=== PATIENT | female | born 1945 | race Caucasian/White ===

== ENCOUNTER → 2016-11-09 | Outpatient (CLI) | payer OTHER, BC ==
[~2016-11-09] MED LIST: AMLO5TAB4 PO; ASPI-113 PO; CLB/200 PO; DYZ; LISI-725 PO; TRAM-10 PO; [UNRECOGNIZED DRUG - REMARK]
[2016-11-09 14:30] LABS: BASO ABS # 0.06 K/uL (0-0.2); COMPLETE YES; EOS % 2.4 %; HEMATOCRIT 42.2 % (37-47); IG% 0.2 %; LYMPH % 32.3 %; LYMPH ABS # 2.03 K/uL (1.2-3.4); MEAN CELL VOLUME 88.7 fL (80-100); MEAN CORPUSCULAR HEMOGLOBIN 29.8 pg (25-34); MEAN CORPUSCULAR HGB CONC 33.6 g/dl (32-36); MEAN PLATELET VOLUME 10.9 fL (7.4-10.4); MONO % 6.7 %; NEUT % 57.4 %; PLATELET COUNT 261 K/uL (130-400); RED BLOOD COUNT 4.76 M/uL (4.2-5.4); WHITE BLOOD COUNT 6.29 K/uL (4.8-10.8)
[2016-11-09 14:52] LABS: ESTIMATED AVERAGE GLUCOSE 126 mg/dl; HA1C FLAG Normal (Normal)
[2016-11-09 14:54] LABS: THYROXINE (T4) 8.6 mcg/dl (4.5-10.9)
[2016-11-09 16:01] LABS: ALT/SGPT 44 U/L (12-78); AST/SGOT 25 U/L (15-37); BLOOD UREA NITROGEN 15 mg/dl (7-18); BUN/CREATININE RATIO 21.2 (10-20); CALCIUM 9.1 mg/dl (8.5-10.1); CARBON DIOXIDE 24 mmol/L (21-32); CHLORIDE 104 mmol/L (98-107); CHOLESTEROL 175 mg/dl (0-200); CREATININE 0.72 mg/dl (0.60-1.20); GLUCOSE 97 mg/dl (70-99); POTASSIUM 3.6 mmol/L (3.5-5.1); SODIUM 138 mmol/L (136-145); TRIGLYCERIDES 197 mg/dl (0-150); VERY LOW DENSITY LIPOPROT CALC 39 mg/dl
[2016-11-09 16:12] LABS: ALB/GLOB RATIO 1.1 (0.9-2); ALKALINE PHOSPHATASE 136 U/L (45-117); CHOLESTEROL/HDL RATIO 4.4; HDL CHOLESTEROL 40 mg/dl
== END | disposition home or self-care (01) ==
LOC: C.LABSPEC 14:21
PROVIDERS: ATTEND Internal Medicine
DX: I10 Essential (primary) hypertension (principal); E78.5 Hyperlipidemia, unspecified; R73.9 Hyperglycemia, unspecified; E04.2 Nontoxic multinodular goiter

== ENCOUNTER → 2017-04-15 | Outpatient (CLI) | payer OTHER, BC ==
[2017-04-15 18:07] LABS: T3 TOTAL 1.16 ng/ml (0.60-1.81); THYROXINE (T4) 8.2 mcg/dl (4.5-10.9)
--- NOTE | 2017-04-26 14:31 | CODING QUERY NO DIAGNOSIS ---
TREATMENT RENDERED WITHOUT A DIAGNOSIS : 1945 To promote full compliance with coding requirements relating to patient care, physician participation is requested in all cases of auditing coder uncertainty. Please assist us with providing a diagnosis/symptom for the test(s) below: A diagnosis/symptom was not documented on your Order. A valid diagnosis/symptom is required to bill all insurances. Please remember that we are unable to code a diagnosis of rule out, probable, possible, questionable, or suspected. Tests that require a diagnosis: DOS: 04/15/17 * T3 TOTAL DIAGNOSIS: * THYROXINE (T4) DIAGNOSIS: * THYROID STIMULATING DIAGNOSIS: Provider Signature: Date: Thank you Cora Reyes Health Information Management Once completed, please kindly fax back to [phone] For questions please call [phone]
== END | disposition home or self-care (01) ==
LOC: C.LABSPEC 17:30
PROVIDERS: ATTEND Internal Medicine
DX: E04.2 Nontoxic multinodular goiter (principal)

== ENCOUNTER → 2017-04-18 | Outpatient (CLI) | payer OTHER, BC ==
--- NOTE | 2017-04-18 11:04 | DIAGNOSTIC IMAGING REPORT ---
ULTRASOUND OF THE THYROID GLAND CLINICAL HISTORY: Multinodular thyroid. COMPARISON STUDY: Thyroid ultrasound dated 06/03/2014. TECHNIQUE: Real-time, grayscale, and color flow sonography of the thyroid gland is performed utilizing a high-frequency linear transducer. Images are reviewed in the transverse and longitudinal planes. FINDINGS: Right lobe: The right lobe of the thyroid gland is mildly enlarged and homogeneous in echotexture, measuring 6.3 x 3.9 x 3.6 cm. There is a large and minimally complex cyst again seen in the lower pole. This measures 4.2 x 3.7 x 3.7 cm (previously 2.7 x 2.8 x 2.7 cm). Additional small colloid cysts are noted in the right lobe. The more solid appearing nodule in the upper pole identified previously is no longer identified. Left lobe: The left lobe of the thyroid gland is normal in size and homogeneous in echotexture, measuring 4.4 x 1.5 x 1.5 cm. There are numerous small colloid cyst identified in the left lobe. The largest is in the midpole and measures 0.9 x 0.6 x 0.7 cm (producing measured 0.8 x 0.5 x 0.7 cm). Isthmus: The thyroid isthmus is mildly thickened measuring 0.5 cm in AP diameter. IMPRESSION: 1. A large and minimally complex cystic nodule in the lower pole of the right thyroid lobe has modestly increased in size from 2013. This remains low suspicion. Continued sonographic follow-up is recommended. 2. The more solid appearing nodule in the right upper pole seen previously is no longer identified. 3. Numerous small colloid cysts are present in both thyroid lobes. Electronically signed by: Vincenzo Lyons M.D. 04/18/2017 11:03 AM Dictated Date/Time: 04/18/2017 10:59 AM
== END | disposition home or self-care (01) ==
LOC: C.ULTR 10:28
PROVIDERS: ATTEND Internal Medicine
DX: E04.2 Nontoxic multinodular goiter (principal)

== ENCOUNTER → 2017-04-25 | Outpatient (CLI) | payer OTHER, BC ==
--- NOTE | 2017-04-25 11:03 | DIAGNOSTIC IMAGING REPORT ---
ULTRASOUND-GUIDED FINE-NEEDLE ASPIRATION OF A RIGHT THYROID NODULE HISTORY: Right thyroid nodule. ENLARGED THYROID COMPARISON: Thyroid ultrasound 04/18/2017. PROCEDURE: Written informed consent was obtained. The neck was prepped and draped in the usual sterile fashion. 1% lidocaine was used for local anesthesia. A total of 1 pass using a 25-gauge needle were made through the dominant right thyroid nodule /cyst under ultrasound guidance. This was followed with near complete drainage of the primarily cystic nodule with a 22-gauge needle. A total of 10 cc of serosanguineous fluid was removed and given to the washer off. The patient tolerated the procedure well. There were no immediate complications. IMPRESSION: Successful ultrasound-guided fine-needle aspiration of a right thyroid nodule/cyst. Electronically signed by: Javier Montalvo M.D. 04/25/2017 11:01 AM Dictated Date/Time: 04/25/2017 11:00 AM
== END | disposition home or self-care (01) ==
LOC: C.ULTR 09:24
PROVIDERS: ATTEND Internal Medicine
DX: E04.9 Nontoxic goiter, unspecified (principal)

== ENCOUNTER → 2017-05-02 | Outpatient (CLI) | payer OTHER, BC ==
--- NOTE | 2017-05-03 07:26 | MAMMOGRAPHY REPORT ---
BILATERAL DIGITAL SCREENING MAMMOGRAM TOMOSYNTHESIS WITH CAD: 05/02/2017 CLINICAL HISTORY: Routine screening. Patient has no complaints. TECHNIQUE: Bilateral breast tomosynthesis in addition to standard 2D mammography was performed. Curre nt study was also evaluated with a Computer Aided Detection (CAD) system. COMPARISON: Comparison is made to exams dated: 04/29/2016 mammogram, 04/28/2015 mammogram, 4 mammogram, 04/24/2013 mammogram, 04/21/2012 mammogram, and 04/19/2011 mammogram - [facility]. BREAST COMPOSITION: There are scattered areas of fibroglandular density in both breasts. FINDINGS: There is a possible area of architectural distortion in the lateral, middle one third of t he right breast, identified on the CC tomosynthesis images (slice 29/72), for which additional spot c ompression tomosynthesis views and possible ultrasound are recommended. No other suspicious mass, architectural distortion or cluster of microcalcifications is seen bilatera lly. IMPRESSION: ACR BI-RADS CATEGORY 0: INCOMPLETE EVALUATION: NEED ADDITIONAL IMAGING EVALUATION The possible area of architectural distortion in the lateral right breast needs additional imaging ev aluation. The patient will be called to schedule an appointment. Approximately 10% of breast cancers are not detected with mammography. A negative mammographic report should not delay biopsy if a clinically suggestive mass is present. Tonja Saldivar M.D. ay/:05/02/2017 20:40:56 Nitrator Operator: Martha CARPIO)(Angelika), [facility] letter sent: Addl Imaging 0 BI-RADS Code: ACR BI-RADS Category 0: Incomplete Evaluation: Need Additional Imaging Evaluation
== END | disposition home or self-care (01) ==
LOC: C.MAMM 10:39
PROVIDERS: ATTEND Internal Medicine
DX: Z12.31 Encounter for screening mammogram for malignant neoplasm of breast (principal); N64.89 Other specified disorders of breast

== ENCOUNTER → 2017-05-16 | Outpatient (CLI) | payer OTHER, BC ==
--- NOTE | 2017-05-16 13:24 | Discharge Instructions ---
Discharge Instructions Procedure Procedure Date: May 16, 2017. Reason for visit: Right Distortion. Discharge Discharge Date: May 16, 2017. Discharge Diagnosis: post right breast stereotactic/tomosynthesis guided biopsy Instructions Activity Recommendations: Additional Limitations (see below) Return to School/Work: no limitations Recommended Home Diet: No Limitations Provider Instructions: ACTIVITY RECOMMENDATIONS: * No lifting, pushing, pulling or exercising the affected side for three days. RETURN TO SCHOOL/WORK: * You may return to work/school after the procedure, but do not perform any strenuous activities for 24 to 48 hours. MEDICATIONS: * Tylenol (two 325 mg) every four to six hours if needed for mild pain (if not allergic to Tylenol). DIET: * Resume previous diet. SPECIAL CARE INSTRUCTIONS: * Keep biopsy site dry for 24 hours. May shower after 24 hours, but do not soak (bathe) incision. * May remove Tegaderm (plastic patch) tomorrow AFTER showering. * Leave the steri-strips on for one week. Allow the steri-strips to fall off by themselves. If not off after one week, you may remove them. You may place a Bandaid crosswise over the strips, if desired. * Apply ice 10 minutes on and 10 minutes off as needed. * Wear a bra at bedtime to sleep more comfortably for 2-3 days. * Your referring physician should have the results after approximately 5 to 7 business days. * Call for unusual bleeding, fever, drainage, etc or if you have any questions call [phone] during normal business hours or after hours call Dr Saldivar, . FOLLOW UP VISIT: Follow-up with Referring Physician as scheduled. Allergies Coded Allergies: No Known Drug Allergy (Verified Allergy, Unknown, ., 03/10/12) Bill Morelos Recommendations: Call your doctor if: * Temperature above 101 degrees * Pain not relieved by pain medicine ordered * There is increased drainage or redness from any incision * You have any unanswered questions or concerns. Your Doctors Instructions noted above were prepared by provider Tonja Saldivar. Patient Signature Section: Patient Instructions Signature Page Miracle Cantu Patient (or Guardian) Signature/Date: I have read and understand the instructions given to me by my caregivers. Caregiver/RN/Doctor Signature/Date: The above-named patient and/or guardian has received patient instructions on this date. + Original Patient Signature Page (only) stays with chart. Please make copy for patient.
--- NOTE | 2017-05-16 15:01 | MAMMOGRAPHY REPORT ---
STEREOTACTIC GUIDED BIOPSY RIGHT BREAST: 05/16/2017 CLINICAL HISTORY: 71-year-old woman presents for stereotactic tomosynthesis guided biopsy of a small focal area of architectural distortion in the upper outer middle one third of the right breast. COMPARISON: Comparison is made to exams dated: 05/06/2017 ultrasound, 05/06/2017 mammogram, 05/02/2017 mammogram, 04/29/2016 mammogram, 04/28/2015 mammogram, and 04/25/2014 mammogram - [facility]. PATIENT CONSENT: After explaining the risks, benefits and alternatives of the procedure to the patien t, informed consent was obtained both verbally and in writing. Specific risks include: Bleeding, inf ection, puncture of adjacent structure, pain, nontarget biopsy, sampling error, metal allergy and med ication reaction. PROCEDURE DESCRIPTION: A time-out was performed and the right breast was confirmed as the site of bio psy. The patient was placed prone on the stereotactic biopsy table and the breast was placed in CC fr om above compression. A fleet maintenance foreman tomosynthesis view was obtained which redemonstrated the focal area of architectural distortion in question. It is amenable to stereotactic guided biopsy. The skin was pre pped with Betadine. 1% Lidocaine with and without epinipherine was administered as local anesthesia. A small skin incision was made. Through the incision, the needle was inserted to the depth determine d by the computer. An additional tomosynthesis view was obtained to assess alignment of the tip of a biopsy needle with the area of distortion, which confirms that this is in alignment. Then, 10 sampl es were obtained using a Sentence Labiva 9-gauge vacuum-assisted biopsy device. A dumbbell-shaped metall ic biopsy marker clip was placed at the site of the biopsy. There was no immediate complication. Hem ostasis was achieved after several minutes of manual compression. The samples were sent to pathology in in appropriately labeled containers. Postprocedure CC and ML tomosynthesis views of the right breast were obtained. There is a 1 cm abimbola paulie and biopsy marker clip in the upper outer middle one third of the right breast, correlating with the focal area of distortion seen on the tomosynthesis images. IMPRESSION: STEREOTACTIC GUIDED BIOPSY Status post right breast stereotactic tomosynthesis guided biopsy of a small focal area of architectu ral distortion in the upper outer middle one third of the breast, with biopsy marker placed at the si te. The patient will receive notification of the biopsy results from her referring physician. Tonja Saldivar M.D. ay/:05/16/2017 13:51:11 Attending Technologist: Radha CARPIO)(Angelika), [facility] Music Therapy Specialist: Pippa Philip, [facility]
--- NOTE | 2017-05-16 15:03 | MAMMOGRAPHY REPORT ---
UNILATERAL RIGHT DIGITAL DIAGNOSTIC MAMMOGRAM TOMOSYNTHESIS: 05/16/2017 CLINICAL HISTORY: Status post stereotactic tomosynthesis guided biopsy of a small focal area of archi tectural distortion in the upper outer quadrant of the right breast. Please refer to the report from right breast stereotactic guided biopsy performed at the same time fo r full detail. IMPRESSION: POST PROCEDURE IMAGING FOR MARKER PLACEMENT Please refer to the report from right breast stereotactic guided biopsy performed at the same time fo r full detail. Approximately 10% of breast cancers are not detected with mammography. A negative mammographic report should not delay biopsy if a clinically suggestive mass is present. Tonja Saldivar M.D. ay/:05/16/2017 13:25:11 Attending Technologist: Radha LIRIANO(R)(M), [facility] Medical Records Clerk: Pippa Philip, [facility] BI-RADS Code: Post Procedure Imaging For Marker Placement
== END | disposition home or self-care (01) ==
LOC: C.MAMM 12:27
PROVIDERS: ATTEND Internal Medicine
DX: R92.8 Other abnormal and inconclusive findings on diagnostic imaging of breast (principal); L90.5 Scar conditions and fibrosis of skin

== ENCOUNTER → 2017-07-18 | Outpatient (CLI) | payer OTHER, BC ==
[2017-07-18 12:16] LABS: BASO % 0.7 %; BASO ABS # 0.04 K/uL (0-0.2); EOS % 1.4 %; EOS ABS # 0.08 K/uL (0-0.5); HEMATOCRIT 42.6 % (37-47); HEMOGLOBIN 14.1 g/dL (12.0-16.0); IG# 0.01 K/uL (0.00-0.02); LYMPH % 28.2 %; LYMPH ABS # 1.56 K/uL (1.2-3.4); MEAN CELL VOLUME 89.9 fL (80-100); MEAN CORPUSCULAR HEMOGLOBIN 29.7 pg (25-34); MEAN CORPUSCULAR HGB CONC 33.1 g/dl (32-36); MEAN PLATELET VOLUME 10.5 fL (7.4-10.4); MONO % 6.9 %; MONO ABS # 0.38 K/uL (0.11-0.59); NEUT % 62.6 %; NEUT ABS # 3.47 K/uL (1.4-6.5); PLATELET COUNT 248 K/uL (130-400); RED CELL DISTRIBUTION WIDTH CV 13.9 % (11.5-14.5); RED CELL DISTRIBUTION WIDTH SD 45.8 fL (36.4-46.3); WHITE BLOOD COUNT 5.54 K/uL (4.8-10.8)
[2017-07-18 12:48] LABS: BLOOD UREA NITROGEN 19 mg/dl (7-18); CALCIUM 9.4 mg/dl (8.5-10.1); CARBON DIOXIDE 30 mmol/L (21-32); CREATININE 0.87 mg/dl (0.60-1.20); GLUCOSE 107 mg/dl (70-99); POTASSIUM 3.7 mmol/L (3.5-5.1); SODIUM 137 mmol/L (136-145)
== END | disposition home or self-care (01) ==
LOC: C.LAB 11:41
PROVIDERS: ATTEND Surgery
DX: N64.89 Other specified disorders of breast (principal); Z01.812 Encounter for preprocedural laboratory examination

== ENCOUNTER → 2017-11-09 | Outpatient (CLI) | payer OTHER, BC ==
[~2017-11-09] MED LIST changes: +AMLO-110 PO; -AMLO5TAB4 PO; -ASPI-113 PO; +B-COTAB18 PO; +BIOF500T PO; +CALC600T9 PO; -CLB/200 PO; +DIPH25TA2 PO; -DYZ; +HYDR-5688 PO; +MINO50TA PO; +OMEG10007 PO; -TRAM-10 PO; +TRIA37.5 PO; +VNTHFA/IN INH; -[UNRECOGNIZED DRUG - REMARK]
[2017-11-09 18:42] LABS: BASO % 0.8 %; BASO ABS # 0.05 K/uL (0-0.2); EOS % 3.3 %; HEMATOCRIT 40.8 % (37-47); HEMOGLOBIN 13.9 g/dL (12.0-16.0); IG# 0.01 K/uL (0.00-0.02); LYMPH % 33.2 %; LYMPH ABS # 2.04 K/uL (1.2-3.4); MEAN CELL VOLUME 88.3 fL (80-100); MEAN CORPUSCULAR HEMOGLOBIN 30.1 pg (25-34); MEAN CORPUSCULAR HGB CONC 34.1 g/dl (32-36); MEAN PLATELET VOLUME 10.7 fL (7.4-10.4); MONO % 9.6 %; MONO ABS # 0.59 K/uL (0.11-0.59); NEUT % 52.9 %; NEUT ABS # 3.26 K/uL (1.4-6.5); PLATELET COUNT 216 K/uL (130-400); RED CELL DISTRIBUTION WIDTH CV 14.1 % (11.5-14.5); RED CELL DISTRIBUTION WIDTH SD 45.9 fL (36.4-46.3); WHITE BLOOD COUNT 6.15 K/uL (4.8-10.8)
[2017-11-09 18:55] LABS: ALBUMIN 3.9 gm/dl (3.4-5.0); ALT/SGPT 50 U/L (12-78); AST/SGOT 31 U/L (15-37); BLOOD UREA NITROGEN 9 mg/dl (7-18); CARBON DIOXIDE 25 mmol/L (21-32); GLUCOSE 130 mg/dl (70-99); POTASSIUM 3.1 mmol/L (3.5-5.1); SODIUM 137 mmol/L (136-145)
[2017-11-09 19:06] LABS: ALKALINE PHOSPHATASE 146 U/L (45-117); CHOLESTEROL 166 mg/dl (0-200); LDL CHOLESTEROL (DIRECT) 103 mg/dl; TOTAL PROTEIN 8.2 gm/dl (6.4-8.2)
[2017-11-10 06:49] LABS: HEMOGLOBIN A1C 6.1 % (4.5-5.6)
== END | disposition home or self-care (01) ==
LOC: C.LABSPEC 17:17
PROVIDERS: ATTEND Internal Medicine
DX: I10 Essential (primary) hypertension (principal); E78.5 Hyperlipidemia, unspecified; R73.9 Hyperglycemia, unspecified; J40 Bronchitis, not specified as acute or chronic; E04.2 Nontoxic multinodular goiter

== ENCOUNTER 2022-09-24 08:41 | Observation (INO) ==
--- NOTE | 2022-08-20 16:13 | PAT Medication Instructions ---
Medication Instructions Date of Service August 20, 2022 Home Medications Vitalizer Gold 1 dose PO QAM amlodipine 5 mg tablet 5 mg PO QAM atorvastatin 20 mg tablet 20 mg PO QAM celecoxib 200 mg capsule (Celebrex) 200 mg PO BID PRN lisinopril 10 mg tablet 20 mg PO BID minocycline 50 mg tablet 50 mg PO QAM potassium chloride 10 mEq tablet,extended release (Klor-Con) 10 meq PO QAM triamterene 37.5 mg-hydrochlorothiazide 25 mg tablet 1 tab PO QAM ASK your surgeon for instructions celecoxib 200 mg capsule (Celebrex) 200 mg PO BID PRN STOP taking 2 weeks before surgery (or as soon as possible if surgery is within 2 weeks) Vitalizer Gold 1 dose PO QAM DO NOT take the morning of surgery lisinopril 10 mg tablet 20 mg PO BID potassium chloride 10 mEq tablet,extended release (Klor-Con) 10 meq PO QAM triamterene 37.5 mg-hydrochlorothiazide 25 mg tablet 1 tab PO QAM Take morning of surgery With a small sip of water, OTHERWISE NOTHING TO EAT OR DRINK AFTER MIDNIGHT: amlodipine 5 mg tablet 5 mg PO QAM atorvastatin 20 mg tablet 20 mg PO QAM minocycline 50 mg tablet 50 mg PO QAM Take evening before surgery lisinopril 10 mg tablet 20 mg PO BID Other Notes If you have any questions please call us at [phone] or [phone] or [phone] or [phone]
--- NOTE | 2022-08-25 10:09 | Anesthesiology Consultation ---
Date of Service August 25, 2022 Assessment & Plan (1) Encounter for pre-operative examination: Chart Review Chart Review: Acceptable Risk for Surgery (pending 09/03/22 ECHO ) and Patient seen in Pre Admission Testing - Awaiting ECHO scheduled 09/03/22 at [facility] - Due to age and palpitations - patient is not an ideal Same Day Joint candidate Per PAT appt on 08/25/22, patient denies any recent travel or large group activities. Pt is vaccinated for Covid. Will leave to surgeon's discretion if preop Covid testing needed. Educated on importance of using Covid precautions one week prior to surgery Teaching & Discussion Pre-Anesthesia Teaching/Discussion Notes: Instructed NPO after midnight before surgery,except medications with 15 cc of water. Medication instructions provided according to the PAT guidelines. History Surgery Operation Date: 09/24/22 10:30 Proposed Procedures p Right Total Knee Arthroplasty - Santhosh Tate, Height/Weight Height: 5 ft 7 in Weight: 105.9 kg Allergies Allergy/AdvReac Type Severity Reaction Status Date / Time acetaminophen [From Vicodin] AdvReac Intermediate difficulty Verified 08/25/22 08:55 sleeping hydrocodone [From Vicodin] AdvReac Intermediate difficulty Verified 08/25/22 08:55 sleeping Medications Home Medications Medication Instructions Recorded Confirmed Last Taken Vitalizer Gold 1 dose PO QAM 08/19/22 08/25/22 Unknown amlodipine 5 mg tablet 5 mg PO QAM 08/19/22 08/25/22 Unknown atorvastatin 20 mg tablet 20 mg PO QAM 08/19/22 08/25/22 Unknown celecoxib 200 mg capsule (Celebrex) 200 mg PO BID PRN Pain 08/19/22 08/25/22 Unknown lisinopril 10 mg tablet 20 mg PO BID 08/19/22 08/25/22 Unknown minocycline 50 mg tablet 50 mg PO QAM 08/19/22 08/25/22 Unknown potassium chloride 10 mEq 10 meq PO QAM 08/19/22 08/25/22 Unknown tablet,extended release (Klor-Con) triamterene 37.5 1 tab PO QAM 08/19/22 08/25/22 Unknown mg-hydrochlorothiazide 25 mg tablet Past Medical History Medical History 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 Rule out arrhythmia and structural heart disease. EKG obtained in office today shows sinus rhythm with PACs. We will get 14 day Zio monitor placed today. Echocardiogram to rule out structural heart disease. If these are reassuring would stop workup at that time. Do not suspect blood pressure/orthostasis is contributing." Echo scheduled 09/03/22 [facility]. Exercise / Class Metabolic Activity III < 4 Walking/Shop/Light housework (no chest pain or SOB with flat surface ambulation ) Past Surgical History Surgical History History of bilateral tubal ligation History of bunionectomy left History of carpal tunnel release R/L History of cholecystectomy History of colonoscopy with polypectomy History of hysterectomy History of tonsillectomy History of tooth extraction History of total hip arthroplasty R/L Hx of breast biopsy x several S/P thyroid biopsy benign Past Anesthesia History No Hx of Anesthesia Complications and No Family Hx of Anesthesia Complications History of PONV No Hx of PONV and No Hx of Motion Sickness Social History Smoking Status: Former smoker Do You Dip or Chew Tobacco: No Smoking End Date: 2012 Hx Alcohol Use: Yes Alcohol type: beer and wine alcohol intake frequency: a few times a week Hx Substance Use: No substance use type: does not use Review of Systems Palpitations- following with PCP- improved from previous recently per patient Patient denies chest pain, shortness of breath, dyspnea on exertion, reflux, cough, wheezing. No hx of seizures, stroke, [place], apnea/snoring. No hx of blood clots or blood transfusions Physical Exam Vital Signs VITALS BP 150/78 (manually) P 85 TEMP 98.1 SP02 96% RESP 16 Constitutional no acute distress ENMT Mouth: no TMJ clicking Thyromental Distance: > or= 3.5 Finger Breadths (4.0) Mallampati Class: III Full dentures on top and bottom Neck + limited neck extension (minimal) Respiratory normal respiratory effort; no respiratory distress Auscultation: lungs clear to auscultation bilaterally; no wheezes Cardiovascular Rate/Rhythm: regular rate and regular rhythm Heart Sounds: no murmur Vessels: no carotid bruit Musculoskeletal Spine: no pain with cervical ROM Extremities: extremities normal to inspection Psychiatric Orientation: alert Lab Results Anesthesia Preop Results Results Anesthesia Widget: WBC 5.83 K/ul (4.8-10.8) 08/25/22 Hgb 14.2 g/dl (12.0-16.0) 08/25/22 Hct 41.7 % (37.0-47.0) 08/25/22 Plt 230 K/uL (130-400) 08/25/22 Na 136 mmol/L (136-145) 08/25/22 K 3.9 mmol/L (3.5-5.1) 08/25/22 Cl 103 mmol/L (98-107) 08/25/22 CO2 27 mmol/L (21-32) 08/25/22 BUN 16 mg/dl (6-23) 08/25/22 Creat 0.67 mg/dl (0.6-1.2) 08/25/22 Glucose Level 117 mg/dl (70-99(Fasting)) H 08/25/22 PT 10.9 Seconds (9.0-12.0) 08/25/22 PTT 29.4 Seconds (21.0-31.0) 08/25/22 INR 1.0 (0.9-1.1) 08/25/22 Blood Type O Positive 08/25/22 Antibody Screen NEGATIVE 08/25/22 Testing Electrocardiogram Date: 07/26/22 Sinus rhythm with PACs at 82 bpm Left axis deviation Incomplete right bundle branch block Chest X-Ray Date: 08/25/22 Findings: + NAD Other Testing Holter monitor 07/26/22= minimum heart rate of 49 bpm, maximal heart rate of 162 bpm and average heart rate of 73 bpm. Predominant underlying rhythm was sinus rhythm. 41 SVT runs occurred. SVT was detected within +/- 45 seconds of symptomatic patient events. Isolated SVE's were rare, SVE couplets were rare and SVE triplets were rare. Isolated VE's, VE couplets-rare. No VE triplets present. (Reviewed by PCP-few runs of rapid heart rate throughout the low 2-week monitoring. These are homeless and lots structural heart disease is found. Await results of echocardiogram next month) COVID-19 Risk Screen Screening Information COVID-19 Screen Date: 08/25/22 Exposure 21 Days Family/Household +COVID Last 21 Days: No Exposure 10 Days Any COVID Exposure Last 10 Days: No Symptoms Last 10 Days Experienced COVID Sx Last 10 Days: No + COVID 0-90 Days COVID + in Last 0-90 Days: No Risk Plan COVID Risk Plan: No Risk Identified Patient Education COVID Preop Screening Education Complete: Yes
--- NOTE | 2022-09-24 06:21 | History & Physical Report ---
Date of Service September 24, 2022 Assessment & Plan (1) Osteoarthritis of right knee: We will proceed with a right total knee arthroplasty. Postoperatively she will be started on aspirin for DVT prophylaxis and kept overnight in the hospital for postop medical management. She plans to use energy physical therapy upon discharge. History of Present Illness Chief Complaint: Osteoarthritis of the right knee. Primary Care Provider: Sunny Singletary MD Miracle is a pleasant 76-year-old female who has been dealing with bilateral knee pain, the right worse than left. She has been receiving shots in her knees. She had an awkward step several months ago and she has really been having a lot of right knee pain since. She had an injection without much relief. She has done activity modification. She has been taking anti- inflammatories. She is really struggling with her right knee. X-rays showed advanced arthritis. After failing conservative treatment, she has elected proceed with a right total knee arthroplasty. Allergies Allergy/AdvReac Type Severity Reaction Status Date / Time acetaminophen [From Vicodin] AdvReac Intermediate difficulty Verified 08/25/22 08:55 sleeping hydrocodone [From Vicodin] AdvReac Intermediate difficulty Verified 08/25/22 08:55 sleeping Home Medications Medication Instructions Recorded Confirmed Type Vitalizer Gold 1 dose PO QAM 08/19/22 08/25/22 History amlodipine 5 mg tablet 5 mg PO QAM 08/19/22 08/25/22 History atorvastatin 20 mg tablet 20 mg PO QAM 08/19/22 08/25/22 History celecoxib 200 mg capsule (Celebrex) 200 mg PO BID PRN Pain 08/19/22 08/25/22 History lisinopril 10 mg tablet 20 mg PO BID 08/19/22 08/25/22 History minocycline 50 mg tablet 50 mg PO QAM 08/19/22 08/25/22 History potassium chloride 10 mEq 10 meq PO QAM 08/19/22 08/25/22 History tablet,extended release (Klor-Con) triamterene 37.5 1 tab PO QAM 08/19/22 08/25/22 History mg-hydrochlorothiazide 25 mg tablet Past Med/Surg History Medical History 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 Rule out arrhythmia and structural heart disease. EKG obtained in office today shows sinus rhythm with PACs. We will get 14 day Zio monitor placed today. Echocardiogram to rule out structural heart disease. If these are reassuring would stop workup at that time. Do not suspect blood pressure/orthostasis is contributing." Echo scheduled 09/03/22 [facility]. Surgical History History of bilateral tubal ligation History of bunionectomy left History of carpal tunnel release R/L History of cholecystectomy History of colonoscopy with polypectomy History of hysterectomy History of tonsillectomy History of tooth extraction History of total hip arthroplasty R/L Hx of breast biopsy x several S/P thyroid biopsy benign Social History Smoking Status: Former smoker Second Hand Exposure: No; Hx Alcohol Use: Yes Alcohol type: beer and wine Hx Substance Use: No Preferred Language: Uzbek Communication Ability: Effective Nibbler Operator Required: No Beliefs That Will Affect Care: None Current Living Situation: Alone Feels Safe at Home: Yes Assistive Devices: Contacts, Denture - Upper, Denture - Lower and Glasses Review of Systems All systems reviewed & are unremarkable except as noted in HPI & below. Physical Exam On physical examination the right knee, she has range of motion 0 to 120 degrees. No instability. Pain of the distal lateral femoral condyle and over the lateral joint line.. Constitutional WD/WN, vitals as above Eyes PERRL, conjunctivae normal, anicteric sclerae ENMT external ear and nose normal, oropharynx normal Neck trachea midline, no thyromegaly Respiratory normal respiratory effort, lungs clear to auscultation Cardiovascular RRR, no murmur, no edema Gastrointestinal (Abdomen) normal bowel sounds, soft, nontender, no hepatosplenomegaly Skin no rashes, warm and dry Psychiatric A+Ox3, euthymic affect Results & Data Results & Data Laboratory Results . Diagnostic Findings X-rays of the right knee show advanced osteoarthritis with joint space narrowing, osteophyte formation, and heno-yu-koeu articulation. PG Care Time/CCT Total # of Minutes Spent Total Time Spent with Patient: Total time spent is greater than 50% in coordination of care (as documented) at patient's floor/unit and/or counseling patient: Coding Level of Care Code None Diagnoses Osteoarthritis of right knee M17.11
[~2022-09-24 08:41] MED LIST changes: +ACETAMINOPHEN 500 MG TAB PO SCH; -AMLO-110 PO; -B-COTAB18 PO; -BIOF500T PO; +BUPIVACAINE 0.5 % 5 MG/1 ML PF 10ML VIAL ONE; -CALC600T9 PO; -DIPH25TA2 PO; +FAMOTIDINE 20 MG TAB PO SCH; +GABAPENTIN 300 MG CAP PO SCH; -HYDR-5688 PO; -LISI-725 PO; +LR 500ML BOLUS, THEN 15ML/HR IV SCH; +LR 60ML/HR IV SCH; -MINO50TA PO; -OMEG10007 PO; +ORTHO JOINT MIX INFIL SCH; +ROPIVACAINE 0.5% 5 MG/ML 30 ML VIAL ONE; +TRANEXAMIC ACID 1,000 MG **IV Intra-op IV SCH; +TRANEXAMIC ACID 1,000 MG **IV Pre-op IV SCH; -TRIA37.5 PO; -VNTHFA/IN INH; +ceFAZolin 2000MG 2,000 MG/15 ML SYR IV SCH; +dexAMETHasone 4 MG TAB PO SCH
[2022-09-24] MEDS ORDERED: PROPOFOL IV EMULSION 10 MG/ML 20 ML VIAL IV ONE (10:33)
[2022-09-24] MEDS ORDERED: fentaNYL citrate PF 100 MCG/2 ML VIAL ONE (10:34)
[2022-09-24] MEDS ORDERED: MIDAZOLAM HCL 1 MG/ML 2ML VIAL ONE (10:34)
[2022-09-24] MEDS ORDERED: ATROPINE SULFATE 0.1 MG/ML 10ML SYR IV PRN (11:48)
[2022-09-24] MEDS ORDERED: ONDANSETRON INJ 2 MG/ML 2 ML VIAL IV PRN ×2 (11:48→15:37)
[2022-09-24] MEDS ORDERED: fentaNYL citrate PF 100 MCG/2 ML VIAL IV PRN (11:48)
[2022-09-24] MEDS ORDERED: ePHEDrine sulfate 50 MG/ML AMP IV PRN (11:48)
[2022-09-24] MEDS ORDERED: ORTHO JOINT ANESTHETIC ONE (12:08)
[2022-09-24] MEDS ORDERED: PHENYLEPHRINE 100MCG/ML 5ML SYR ONE (12:51)
--- NOTE | 2022-09-24 13:21 | Operative Report ---
PG Post Operative Report Pre & Post Diagnosis Operation Date: 09/24/22 11:40 Pre-Op Diagnosis: Degenerative joint disease of right knee Post-Op Diagnosis: Degenerative joint disease of right knee I identified the patient and participated in the time-out.: Yes Procedure Operation Date: 09/24/22 11:40 Actual Procedures p Right Total Knee Arthroplasty(Right) - Santhosh Tate DO Surgeon Santhosh Tate DO Digital Marketing Intern Santhosh Terry PA-C Estimated Blood Loss 30 Findings Consistent with Post-Op Diagnosis Specimens Right femoral and tibial bone Description of Procedure Implants used: I used a Cristina Persona total knee arthroplasty system with a size 9 narrow femur, D tibia, 31 oval patella, and a size 12 medial congruent polyethylene bearing. All components were cemented in place with Biomet cement. Miracle arrived [facility] for the above procedure. She was seen in the preoperative holding area and the operative extremity was identified and signed. She was given a preoperative antibiotic, TXA, a spinal anesthetic and an adductor nerve block. She was taken back to the operating room and laid on the table in supine position. She was given basic sedation. The operative knee was then prepped and draped in sterile fashion. A timeout was done, and the patient and the operative extremity was properly identified. A midline incision was made directly over the patella. Dissection was taken down to the extensor mechanism. A midvastus arthrotomy was used. The medial retinaculum was released and the fat pad was mostly excised. The knee was flexed and the ACL, PCL, and meniscus were removed. A drill was sent down the center of the femoral canal followed by an intramedullary meenakshi. Off that meenakshi a distal femoral cutting block was placed. 9 mm was resected off the distal femur at 5 of valgus. A posterior referencing AP sizing guide was then placed on the distal femur. The femur measured to be a size 9D. 2 drill holes were placed in 3 of external rotation. A 4-in-1 cutting block was then impacted into place. Anterior, posterior, and chamfer cuts were then made. The proximal tibia was then exposed. An external tibial alignment guide was placed. A tibial cut guide was then anchored in place and the proximal tibia was then resected. The posterior aspect of the knee was then opened up and any additional meniscus fragments and osteophytes were removed. The tibia measured to be a size D. The tibial plate was then placed in the appropriate rotation and the tibia was drilled and punched. Trial components were then placed. I used a size 12 medial congruent polyethylene insert. The knee was brought through a full range of motion and felt to be stable. The peg holes for the femoral component were then drilled. The patella was then everted and 9 mm was resected off the posterior aspect of the patella. The patella measured to be a size 31 oval. 3 peg holes were then drilled. A trial patella was placed. The knee was once again brought through a full range of motion and felt to be stable. Trial components were then removed. The surrounding soft tissues were injected with 100 cc of an orthopedic pain control cocktail. All components were then cemented into place with Biomet cement. The final polyethylene insert was then snapped into place. Once cement was dry the tourniquet was deflated. Hemostasis was obtained. A dilute betadyne lavage was then done for 3 minutes. The joint was then irrigated with normal saline solution. The midvastus arthrotomy was then closed with #1 Vicryl suture. The skin was closed with 2-0 Vicryl, 3-0V lock suture, and isaias. A soft compressive dressing was placed. She was then transferred to a hospital bed and taken to the postanesthesia care unit in stable condition. She tolerated the procedure well. Santhosh Terry PA-C, was present for the entire procedure. He was critical for patient positioning, prepping, draping, retraction exposure, wound closure and application of sterile dressing. I attest to the content of the Intraoperative Record and any orders documented therein. Any exceptions are noted below.
--- NOTE | 2022-09-24 14:38 | Anesthesiology Progress Note ---
Date of Service September 24, 2022 Anesthesia Post Procedure Vital Signs Vital Signs: Temp Pulse Pulse Resp BP Pulse Ox O2 Del Method 09/24/22 14:30 97.3 F L 69 13 119/66 96 Room Air 09/24/22 14:20 73 14 118/68 95 Room Air 09/24/22 14:10 80 16 119/83 95 Room Air 09/24/22 14:00 81 19 105/72 96 Room Air 09/24/22 13:50 82 16 102/67 100 Oxymask 09/24/22 13:44 98.2 F 88 13 98/54 L 98 Oxymask 09/24/22 09:05 98.1 F 96 H 96 H 149/79 H 20 L Room Air O2 Flow Rate 09/24/22 14:30 09/24/22 14:20 09/24/22 14:10 09/24/22 14:00 09/24/22 13:50 9 09/24/22 13:44 9 09/24/22 09:05 Transfer of Care Handoff Completed per policy Notes Mental Status: alert / awake / arousable and participated in evaluation Patient Amnestic to Procedure: Yes Nausea / Vomiting: adequately controlled Pain: adequately controlled Airway Patency, RR, SpO2: stable & adequate BP & HR: stable & adequate Hydration State: stable & adequate Neuraxial Anesthesia: was administered and sensory block is resolving Anesthetic Complications: no major complications apparent and Pt Satisfied with anesthetic care
--- NOTE | 2022-09-24 15:10 | XRay Report ---
XR knee RT 1 or 2V routine CLINICAL HISTORY: Postoperative evaluation. COMPARISON: Right knee radiographs June 23, 2022. FINDINGS: Alignment of the total right knee arthroplasty is anatomic. There is no periprosthetic fra cture. There is no unexpected radiopaque foreign body. There are skin isaias. IMPRESSION: Expected findings following total right knee arthroplasty. ACT 112: Negative or not required by law. Electronically signed by: Daren Hunt M.D. 09/24/2022 3:08 PM
[2022-09-24] MEDS ORDERED: HYDROmorphone INJ 0.5 MG/0.5 ML SYR IV PRN (15:37)
[2022-09-24] MEDS ORDERED: bisacodyL 10 MG SUPP PR PRN (15:37)
[2022-09-24] MEDS ORDERED: METOCLOPRAMIDE HCL INJ 5 MG/ML 2 ML VIAL IV PRN (15:37)
[2022-09-24] MEDS ORDERED: MAGNESIUM HYDROXIDE SUSP 30 ML UDC PO PRN (15:37)
[2022-09-24] MEDS ORDERED: NALOXONE HCL 0.4 MG/1 ML VIAL/CARP IV PRN (15:37)
[2022-09-24] MEDS: KETOROLAC TROMETHAMINE 15 MG/ML VIAL IV SCH ×2 (16:08→21:43)
[2022-09-24] MEDS: ACETAMINOPHEN 500 MG TAB PO SCH ×2 (16:09→21:44)
[2022-09-24] MEDS: SODIUM CHLORIDE 0.9% 1000ML 1,000 ML IV SCH (16:09)
[2022-09-24] MEDS ORDERED: SENNA 8.6 MG TAB PO SCH (21:00)
[2022-09-24] MEDS: oxyCODONE HCL IR 5 MG TAB (IMMEDIATE RELEASE) PO PRN (21:01)
[2022-09-24] MEDS: ceFAZolin 2000MG 2,000 MG/15 ML SYR IV SCH (21:02)
[2022-09-24] MEDS: lisinopril 20 MG TAB PO SCH (21:44)
[2022-09-24] MEDS: DOCUSATE SODIUM 100 MG CAP PO SCH (21:44)
[2022-09-24] MEDS: ASPIRIN 81 MG ECTAB PO SCH (21:44)
[2022-09-25] MEDS: SODIUM CHLORIDE 0.9% 1000ML 1,000 ML IV SCH (01:52)
[2022-09-25] MEDS: ceFAZolin 2000MG 2,000 MG/15 ML SYR IV SCH (03:59)
[2022-09-25] MEDS: KETOROLAC TROMETHAMINE 15 MG/ML VIAL IV SCH ×2 (03:59→10:39)
--- NOTE | 2022-09-25 06:13 | Orthopedic Progress Note ---
Date of Service September 25, 2022 Assessment & Plan (1) Status post right knee replacement: Overall she is doing very well. She is not having much pain in the right knee. She will be seen by physical therapy today for ambulation and range of motion exercises. She is on aspirin for DVT prophylaxis. She can be discharged home later today. The nursing staff can change her dressing after physical therapy. She will follow-up with orthopedics in 2 weeks. Awilda Rausch was seen and examined at bedside this morning. Overall she is doing very well. She is not having much pain in the right knee. She has been up and ambulating to the bathroom. She has no complaints.. Review of Systems All systems reviewed & are unremarkable except as noted in HPI & below. Physical Exam On physical examination of the right knee, the dressing is clean and dry. Her leg is out full extension. She has active dorsiflexion plantarflexion of her right ankle.. Results & Data Results & Data Laboratory Results . Diagnostic Findings Postoperative x-rays of the right knee show the prosthesis to be in anatomic alignment without any evidence of fracture, education, or loosening. PG Care Time/CCT Total # of Minutes Spent Total Time Spent with Patient: Total time spent is greater than 50% in coordination of care (as documented) at patient's floor/unit and/or counseling patient: Coding Level of Care Code 69660 Post Operative Follow-Up Diagnoses Status post right knee replacement Z96.651
--- NOTE | 2022-09-25 06:14 | Discharge Summary ---
Date of Service September 25, 2022 Admission HPI (Per Admitting) Miracle is a pleasant 76-year-old female who has been dealing with bilateral knee pain, the right worse than left. She has been receiving shots in her knees. She had an awkward step several months ago and she has really been having a lot of right knee pain since. She had an injection without much relief. She has done activity modification. She has been taking anti- inflammatories. She is really struggling with her right knee. X-rays showed advanced arthritis. After failing conservative treatment, she has elected proceed with a right total knee arthroplasty. Admission Exam (Per Admitting) On physical examination the right knee, she has range of motion 0 to 120 degrees. No instability. Pain of the distal lateral femoral condyle and over the lateral joint line.. Principal Diagnosis Same as "Discharge Diagnosis" noted below under Discharge Instructions. Discharge Exam On physical examination of the right knee, the dressing is clean and dry. Her leg is out full extension. She has active dorsiflexion plantarflexion of her right ankle.. Discharge Data Procedures Performed Operation Date: 09/24/22 11:40 Actual Procedures p Right Total Knee Arthroplasty(Right) - Santhosh Tate DO Ordered Studies 09/24/22 05:00 US - OR guided needle placemen Routine Hospital Course (1) Status post right knee replacement: On September 24, 2022 Miracle arrived at [facility] and underwent a right knee replaced without complication. She had a spinal anesthetic. Postoperatively she was started on aspirin for DVT prophylaxis and transferred to the general orthopedic floors. Her hospital course was uneventful. On postop day #1, her vital signs were stable and her pain was well controlled. She was able to participate well with physical therapy doing ambulation and range of motion exercises. She was then discharged home. She will follow-up with orthopedics in 2 weeks. PG Care Time/CCT Total # of Minutes Spent Total Time Spent with Patient: Total time spent is greater than 50% in coordination of care (as documented) at patient's floor/unit and/or counseling patient: Discharge Plan Discharge Items Patient Disposition: Home - Home Health Services Reason For Visit: DJD Right Knee Discharge Diagnosis: Right knee replacement Activity: Per Instructions section Non-emergency contact: Surgeon Call non-emergency contact if: your wound has increased redness and your wound h as increased drainage Follow-up/Referrals: May,Sunny, MD [Primary Care Provider] - Diet: Regular Addtl Attending Provider Instructions: Activity and Therapy Recommendations: * If you are using [facility] then therapy will be provided at your home until they feel you have accomplished all of your goals. * If you are using [facility] then Physical Therapy will be provided until they feel you are ready to start Outpatient Physical Therapy. * If you are not using home therapy then Outpatient Physical Therapy should start about 3-5 days from your day of surgery. Therapy will last about 6-10 weeks * It is important not to put a pillow under your knee when you are relaxing or sleeping. It is just as important to make sure you are getting your knee perfectly straight as it is to regain your knee bend. * You were shown a series of exercises in the hospital. Do these exercises three times each day including the exercises you were shown in physical therapy. * Get up and walk several times each day. For the first four weeks, try not to stand or walk for more than one hour at a time. If you do stand or walk for more than one hour, you will not hurt anything, but your leg will likely swell. * As you feel comfortable, you may change from the walker or crutches to a cane and then to independent walking. Medications: * Narcotic You will likely be sent home from the hospital with a prescription for the narcotic pain medication that worked best throughout your stay. * Aspirin Most patients will be required to take Aspirin 81mg twice a day for 6 weeks after surgery. This is obtained [id number] and a prescription is not necessary. * Other medications may be prescribed for specific circumstances. If you have any questions, please call the office at . * Resume previous home medications unless otherwise instructed TEDs/Elastic Stockings: The white elastic stockings help limit swelling and prevent blood clots from forming in your legs.~ The more you wear them, the more they work. Wear them for six weeks. Dressing Care: The dressing can be changed after physical therapy on postop day #1. Daily dry dressing changes for a few days, especially if the incision is still draining some. If the incision is not draining then you may leave the isaias open to air. If there is a little bit of drainage or if the isaias are getting stuck on your clothing then cover the incision with a dry dressing. The isaias will be removed at your 2 week follow-up appointment. Showering: You may shower 5 days from the day of surgery as long as the incision is no longer draining. You may shower with the isaias exposed. Let soapy water run over the isaias and pat them dry. Do not scrub or soak the incision. Things To Watch For: * Drainage from the incision site that occurs more than one week after your surgery. * Increased redness at the incision site. * Fever above 102 degrees Fahrenheit. * Unusual chest pain or shortness of breath. * Call [facility] at with any of the above problems Follow-Up Visit: Follow-up with Dr. Tate's PA (Santhosh Terry) 2-3 weeks after your day of surgery. He will remove your isaias and answer any questions. If you have any additional questions or concerns, Dr Tate is usually in the office at the same time and will be available An appointment was probably scheduled when you signed-up for surgery in the office. If you have any questions call Office Instructions: More detailed instructions as well as Frequently Asked Questions were provided in a folder by our office when you signed-up for surgery. Please review these instructions when you get home. If you have any further questions or concerns, please feel free to call the office at [phone] Pending Studies at Discharge: No Stand-Alone Forms: My [facility] Medications and DC Order Prescriptions: New aspirin 81 mg Tablet,Delayed Release (Dr/Ec) 81 mg PO BID 42 Days Qty: 84 0RF oxycodone-acetaminophen 5-325 mg tablet 1 tab PO Q6H PRN (Reason: pain) Qty: 30 0RF Continued atorvastatin 20 mg Tablet 20 mg PO QAM potassium chloride [Klor-Con 10] 10 mEq Tablet Extended Release 10 meq PO QAM amlodipine 5 mg Tablet 5 mg PO QAM lisinopril 10 mg Tablet 20 mg PO BID triamterene-hydrochlorothiazid 37.5-25 mg Tablet 1 tab PO QAM minocycline 50 mg Tablet 50 mg PO QAM Vitalizer Gold 1 dose PO QAM celecoxib [Celebrex] 200 mg capsule 200 mg PO BID PRN (Reason: Pain) Admission Data Admit Date/Time: 09/24/22 14:37 Attending Provider: Santhosh Tate Admit Provider: Santhosh Tate Primary Care Provider: Sunny Singletary
[2022-09-25] MEDS: oxyCODONE HCL IR 5 MG TAB (IMMEDIATE RELEASE) PO PRN (06:20)
[2022-09-25] MEDS: ACETAMINOPHEN 500 MG TAB PO SCH (06:21)
[2022-09-25 06:40] LABS: BUN Creatinine Ratio 23.4 (10-20); Calcium 8.5 mg/dl (8.6-10.3); Creatinine Clr Calc Pharmacy 61.4 ml/min; Est GFR (African American) 67.3 ml/min; Est GFR (Non-African American) 58.1 ml/min; Potassium 3.8 mmol/L (3.5-5.1)
[2022-09-25] MEDS ORDERED: dexAMETHasone 4 MG TAB PO SCH (08:00)
[2022-09-25] MEDS ORDERED: POTASSIUM CHLORIDE 10 MEQ TABCR PO SCH (09:00)
[2022-09-25] MEDS ORDERED: MULTIVITAMIN TAB PO SCH (09:00)
[2022-09-25] MEDS ORDERED: ATORVASTATIN 20 MG TAB PO SCH (09:00)
[2022-09-25] MEDS ORDERED: [UNRECOGNIZED DRUG - OTHER] PO SCH (09:00)
[2022-09-25] MEDS ORDERED: TRIAMTERENE/HCTZ 37.5/25MG TAB PO SCH (09:00)
[2022-09-25] MEDS ORDERED: amLODIPine BESYLATE 5 MG TAB PO SCH (09:00)
[2022-09-25] MEDS ORDERED: MINOCYCLINE HCL 50 MG CAP PO SCH (09:00)
[2022-09-25] MEDS: DOCUSATE SODIUM 100 MG CAP PO SCH (09:07)
[2022-09-25] MEDS: ASPIRIN 81 MG ECTAB PO SCH (09:07)
[2022-09-25] MEDS: lisinopril 20 MG TAB PO SCH (09:07)
== END 2022-09-25 12:06 | disposition home health service (06) ==
LOC: 3E 08:41 → ASU 08:41

== ENCOUNTER 2022-12-17 09:21 | Observation (INO) ==
--- NOTE | 2022-12-07 11:01 | Anesthesiology Consultation ---
Date of Service December 07, 2022 Assessment & Plan (1) Encounter for pre-operative examination: Plan - s/p R TKA 09/24/22 SAB L4-L5 2 attempts + PNB. - PCP office visit 10/19/22 [facility]: "...Irregular thickening of the right oblique fissure on CT scan 09/25/2022. 3 month repeat to monitor for stability. Schedule January 2023...Resolved. Zio monitor and echocardiogram from September 2022 reassuring. No further workup at this time...Planned left TKA 12/17/2022..." - COVID screening: Per power and recovery supervisor on 12/07/2022: Travel screen negative, no known COVID-19 positive contacts or current COVID-19 related symptoms in past 2 weeks. To surgeon's discretion if preop COVID testing is needed. - Outpatient joint assessment: Patient is currently scheduled for inpatient pathway. If re-evaluated pending system levels during current pandemic/surgeon requests outpatient pathway, patient is not recommended candidate for outpatient joint program from anesthesia standpoint. Chart Review Chart Review: Acceptable Risk for Surgery and Patient NOT seen in Pre Admission Testing History Surgery Operation Date: 12/17/22 08:10 Proposed Procedures p Left Total Knee Arthroplasty - Santhosh Tate, Height/Weight Height: 5 ft 7 in Weight: 104.326 kg Allergies Allergy/AdvReac Type Severity Reaction Status Date / Time hydrocodone [From Vicodin] AdvReac Intermediate difficulty Verified 12/07/22 10:16 sleeping Medications Home Medications Medication Instructions Recorded Confirmed Last Taken Vitalizer Gold 1 dose PO QAM 08/19/22 12/07/22 09/18/22 amlodipine 5 mg tablet 5 mg PO QAM 08/19/22 12/07/22 09/24/22 07:00 atorvastatin 20 mg tablet 20 mg PO QAM 08/19/22 12/07/22 09/24/22 07:00 lisinopril 10 mg tablet 20 mg PO BID 08/19/22 12/07/22 09/23/22 22:00 minocycline 50 mg tablet 50 mg PO QAM 08/19/22 12/07/22 09/24/22 07:00 potassium chloride 10 mEq 10 meq PO QAM 08/19/22 12/07/22 09/23/22 10:00 tablet,extended release (Klor-Con) triamterene 37.5 1 tab PO QAM 08/19/22 12/07/22 09/23/22 10:00 mg-hydrochlorothiazide 25 mg tablet oxycodone-acetaminophen 5 mg-325 1 tab PO Q6H PRN pain #30 tabs 09/25/22 12/07/22 Unknown mg tablet oxycodone-acetaminophen 5 mg-325 1 tab PO Q6H PRN pain #30 tabs 10/06/22 12/07/22 Unknown mg tablet (Percocet) Past Medical History Medical History (Updated 12/07/22 @ 10:59 by Parisa Monroy PA-C) 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 Increased risk for cancer in general (sister has hx of breast cancer)- no personal hx of cancer History of COVID-19 03/06/2022 (home test) > symptoms resolved Hyperlipidemia Hypertension Palpitations [facility] PCP records indicate resolution with reassuring Zio monitor and echo per last note Past Family History Family History Other No family history of adverse response to anesthesia Past Surgical History Surgical History History of bilateral tubal ligation History of bunionectomy left History of carpal tunnel release R/L History of cholecystectomy History of colonoscopy with polypectomy History of hysterectomy History of tonsillectomy History of tooth extraction History of total hip arthroplasty R/L Hx of breast biopsy x several S/P thyroid biopsy benign Status post right knee replacement (~09/2022) Social History Smoking Status: Former smoker tobacco type: cigarettes Do You Dip or Chew Tobacco: No Smoking End Date: quit ~ 10 yrs ago Hx Alcohol Use: Yes Alcohol type: beer and wine alcohol intake frequency: a few times a week Hx Substance Use: No substance use type: does not use Lab Results Anesthesia Preop Results Results Anesthesia Widget: WBC 5.94 K/ul (4.8-10.8) 11/16/22 Hgb 13.5 g/dl (12.0-16.0) 11/16/22 Hct 41.0 % (37.0-47.0) 11/16/22 Plt 288 K/uL (130-400) 11/16/22 Na 136 mmol/L (136-145) 11/16/22 K 3.7 mmol/L (3.5-5.1) 11/16/22 Cl 101 mmol/L (98-107) 11/16/22 CO2 26 mmol/L (21-32) 11/16/22 BUN 13 mg/dl (6-23) 11/16/22 Creat 0.72 mg/dl (0.6-1.2) 11/16/22 Glucose Level 92 mg/dl (70-99(Fasting)) 11/16/22 PT 10.8 Seconds (9.0-12.0) 11/16/22 PTT 28.5 Seconds (21.0-31.0) 11/16/22 INR 1.0 (0.9-1.1) 11/16/22 Blood Type O Positive 11/16/22 Antibody Screen NEGATIVE 11/16/22 Testing Electrocardiogram Date: 07/26/22 Sinus rhythm with PACs, rate 82 bpm Left axis deviation Incomplete RBBB Chest X-Ray Date: 08/25/22 No acute chest disease Echocardiogram Date: 09/03/22 EF 55-59% Mild cLVH Normal LV wall motion Mild aortic valve sclerosis Other Testing Chest CT 09/22/22 1. Multiple bilateral 2 mm and smaller pulmonary nodules a few of are calcified in felt to represent granulomas. For patients at low risk (minimal or absent history of smoking and of other known risk factors), no routine follow-up is indicated. For patients at high risk (history of smoking or of other known risk factors), consider optional CT Chest at 12 months. (Reference: Nichole) 2. 1.2 cm irregular thickening of the right oblique fissure series 12, image 74. Consider followup three-month CT chest to assess stability. (Nichole et al., Fleischner Society, 2017) 3. Mild coronary arterial calcification, indicating the presence of coronary artery disease. If the patient has associated symptoms recommend management as per chest pain guidelines. If the patient is asymptomatic consider reviewing modifiable cardiovascular risk factors and managing as per guidelines for primary prevention. Cardiac monitoring 08/13/22 Avg HR 73, max 62, min 49 Predominant rhythm: sinus rhythm Supraventricular tachycardia, fastest interval 7 beats with max rate 162, longest lasting 14 seconds Rare isolated SVEs, SVE couplets, SVE triplets, isolated VEs and VE couplets No VE triplets
--- NOTE | 2022-12-14 17:43 | History & Physical Report ---
Date of Service December 14, 2022 Assessment & Plan (1) Osteoarthritis of left knee: We will proceed with a left total knee arthroplasty. Postoperatively she will be started on aspirin for DVT prophylaxis and kept overnight in the hospital for postoperative medical management. She plans to [facility] upon discharge. History of Present Illness Chief Complaint: Osteoarthritis of the left knee. Primary Care Provider: Sunny Singletary MD Miracle is a pleasant 77-year-old female who I did a right knee replacement on in September 2022. She is done very well with that. Unfortunately she has been dealing with left knee pain. X-rays and clinical examination been diagnostic for advanced osteoarthritis of the left knee. After failing conservative treatm ent, she has elected to proceed with a left total knee arthroplasty.. Allergies Allergy/AdvReac Type Severity Reaction Status Date / Time hydrocodone [From Vicodin] AdvReac Intermediate difficulty Verified 12/07/22 10:16 sleeping Home Medications Medication Instructions Recorded Confirmed Type Vitalizer Gold 1 dose PO QAM 08/19/22 12/07/22 History amlodipine 5 mg tablet 5 mg PO QAM 08/19/22 12/07/22 History atorvastatin 20 mg tablet 20 mg PO QAM 08/19/22 12/07/22 History lisinopril 10 mg tablet 20 mg PO BID 08/19/22 12/07/22 History minocycline 50 mg tablet 50 mg PO QAM 08/19/22 12/07/22 History potassium chloride 10 mEq 10 meq PO QAM 08/19/22 12/07/22 History tablet,extended release (Klor-Con) triamterene 37.5 1 tab PO QAM 08/19/22 12/07/22 History mg-hydrochlorothiazide 25 mg tablet oxycodone-acetaminophen 5 mg-325 1 tab PO Q6H PRN pain #30 tabs 09/25/22 12/07/22 Rx mg tablet oxycodone-acetaminophen 5 mg-325 1 tab PO Q6H PRN pain #30 tabs 10/06/22 12/07/22 Rx mg tablet (Percocet) Past Med/Surg History Medical History 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 Increased risk for cancer in general (sister has hx of breast cancer)- no personal hx of cancer History of COVID-19 03/06/2022 (home test) > symptoms resolved Hyperlipidemia Hypertension Palpitations [facility] records indicate resolution with reassuring Zio monitor and echo per last note Surgical History History of bilateral tubal ligation History of bunionectomy left History of carpal tunnel release R/L History of cholecystectomy History of colonoscopy with polypectomy History of hysterectomy History of tonsillectomy History of tooth extraction History of total hip arthroplasty R/L Hx of breast biopsy x several S/P thyroid biopsy benign Status post right knee replacement (~09/2022) Family History Other No family history of adverse response to anesthesia Social History Smoking Status: Former smoker Second Hand Exposure: No; Do You Dip or Chew Tobacco: No; Hx Alcohol Use: Yes Alcohol type: beer and wine Hx Substance Use: No Preferred Language: Malagasy Communication Ability: Effective Freezer Operator Required: No Beliefs That Will Affect Care: None Current Living Situation: Alone Feels Safe at Home: Yes Assistive Devices: Contacts, Denture - Upper, Denture - Lower and Glasses Review of Systems All systems reviewed & are unremarkable except as noted in HPI & below. Physical Exam On physical examination of the left knee, she has tenderness palpation of the distal femoral condyles and mostly over the lateral joint line. There is no gross deformity. There is no effusion.. Constitutional WD/WN, vitals as above Eyes PERRL, conjunctivae normal, anicteric sclerae ENMT external ear and nose normal, oropharynx normal Neck trachea midline, no thyromegaly Respiratory normal respiratory effort, lungs clear to auscultation Cardiovascular RRR, no murmur, no edema Gastrointestinal (Abdomen) normal bowel sounds, soft, nontender, no hepatosplenomegaly Skin no rashes, warm and dry Psychiatric A+Ox3, euthymic affect Results & Data Results & Data Laboratory Results . Diagnostic Findings Postoperative x-rays of the left knee show the prosthesis to be in anatomic alignment without any evidence of fracture, desiccation, or loosening.. PG Care Time/CCT Total # of Minutes Spent Total Time Spent with Patient: Total time spent is greater than 50% in coordination of care (as documented) at patient's floor/unit and/or counseling patient: Coding Level of Care Code None Diagnoses Osteoarthritis of left knee M17.12
[~2022-12-17 09:21] MED LIST changes: +EPINEPHrine INJ 1 MG/ML AMP ONE; +Ketorolac (*for OR use only*) 30 MG, dexAMETHasone 4 MG, KETAMINE HCL (**OR use only) 1... INFIL SCH; -ORTHO JOINT MIX INFIL SCH
--- NOTE | 2022-12-17 10:41 | History & Physical Bridge Note ---
Date of Service December 17, 2022 History & Physical Bridge Note I have examined the patient, reviewed the History & Physical and in the interval since the performance of the History & Physical I have noted the following changes of clinical significance: no changes noted
[2022-12-17] MEDS ORDERED: PROPOFOL IV EMULSION 10 MG/ML 20 ML VIAL IV ONE ×2 (11:26→14:01)
[2022-12-17] MEDS ORDERED: ONDANSETRON INJ 2 MG/ML 2 ML VIAL ONE (11:26)
[2022-12-17] MEDS ORDERED: fentaNYL citrate PF 100 MCG/2 ML VIAL ONE (11:27)
[2022-12-17] MEDS ORDERED: MIDAZOLAM HCL 1 MG/ML 2ML VIAL ONE (11:27)
[2022-12-17] MEDS ORDERED: BUPIVACAINE 0.5 % 5 MG/1 ML PF 10ML VIAL ONE (11:30)
[2022-12-17] MEDS ORDERED: ORTHO JOINT ANESTHETIC ONE (12:38)
[2022-12-17] MEDS ORDERED: ePHEDrine sulfate 50 MG/ML AMP IV PRN (14:09)
[2022-12-17] MEDS ORDERED: ATROPINE SULFATE 0.1 MG/ML 10ML SYR IV PRN (14:09)
--- NOTE | 2022-12-17 14:29 | Operative Report ---
PG Post Operative Report Pre & Post Diagnosis Operation Date: 12/17/22 12:00 Pre-Op Diagnosis: Left Knee Degenerative Joint Disease Post-Op Diagnosis: Left Knee Degenerative Joint Disease I identified the patient and participated in the time-out.: Yes Procedure Operation Date: 12/17/22 12:00 Actual Procedures p Left Total Knee Arthroplasty(Left) - Santhosh Tate DO Surgeon Santhosh Tate DO Airplane Woodworker Santhosh Terry PA-C Estimated Blood Loss 30 Findings Consistent with Post-Op Diagnosis Specimens Left femoral and tibial bone Description of Procedure Implants used: I used a Cristina Persona total knee arthroplasty system with a size 9 narrow femur, D tibia, 31 oval patella, and a size 10 medial congruent polyethylene bearing. All components were cemented in place with Biomet cement. Miracle arrived [facility] for the above procedure. She was seen in the preoperative holding area and the operative extremity was identified and signed. She was given a preoperative antibiotic, TXA, a spinal anesthetic and an adductor nerve block. She was taken back to the operating room and laid on the table in supine position. She was given basic sedation. The operative knee was then prepped and draped in sterile fashion. A timeout was done, and the patient and the operative extremity was properly identified. A midline incision was made directly over the patella. Dissection was taken down to the extensor mechanism. A midvastus arthrotomy was used. The medial retinaculum was released and the fat pad was mostly excised. The knee was flexed and the ACL, PCL, and meniscus were removed. A drill was sent down the center of the femoral canal followed by an intramedullary meenakshi. Off that meenakshi a distal femoral cutting block was placed. 9 mm was resected off the distal femur at 5 of valgus. A posterior referencing AP sizing guide was then placed on the distal femur. The femur measured to be a size 9 narrow. 2 drill holes were placed in 3 of external rotation. A 4-in-1 cutting block was then impacted into place. Anterior, posterior, and chamfer cuts were then made. The proximal tibia was then exposed. An external tibial alignment guide was placed. A tibial cut guide was then anchored in place and the proximal tibia was then resected. The posterior aspect of the knee was then opened up and any additional meniscus fragments and osteophytes were removed. The tibia measured to be a size D. The tibial plate was then placed in the appropriate rotation and the tibia was drilled and punched. Trial components were then placed. I used a size 10 medial congruent polyethylene insert. The knee was brought through a full range of motion and felt to be stable. The peg holes for the femoral component were then drilled. The patella was then everted and 9 mm was resected off the posterior aspect of the patella. The patella measured to be a size 31 oval. 3 peg holes were then drilled. A trial patella was placed. The knee was once again brought through a full range of motion and felt to be stable. Trial components were then removed. The surrounding soft tissues were injected with 100 cc of an orthopedic pain control cocktail. All components were then cemented into place with Biomet cement. The final polyethylene insert was then snapped into place. Once cement was dry the tourniquet was deflated. Hemostasis was obtained. A dilute betadyne lavage was then done for 3 minutes. The joint was then irrigated with normal saline solution. The midvastus art hrotomy was then closed with #1 Vicryl suture. The skin was closed with 2-0 Vicryl, 3-0V lock suture, and isaias. A soft compressive dressing was placed. She was then transferred to a hospital bed and taken to the postanesthesia care unit in stable condition. She tolerated the procedure well. Santhosh Terry PA-C, was present for the entire procedure. He was critical for patient positioning, prepping, draping, retraction exposure, wound closure and application of sterile dressing. I attest to the content of the Intraoperative Record and any orders documented therein. Any exceptions are noted below.
--- NOTE | 2022-12-17 15:18 | XRay Report ---
XR knee LT 1 or 2V routine CLINICAL HISTORY: Surgical Post Op TECHNIQUE: 2 views of the left knee were obtained. Comparison: Comparison is made to left knee radiographs 05/15/2018 FINDINGS: Patient is status post total knee arthroplasty with expected postsurgical changes including soft tiss ue swelling and subcutaneous emphysema. No periarticular lucency or hardware fracture is seen. IMPRESSION: Expected postoperative appearance status post placement of total knee arthroplasty. ACT 112: Negative or not required by law. Electronically signed by: Talat Elmore M.D. 12/17/2022 3:16 PM
--- NOTE | 2022-12-17 15:59 | Anesthesiology Progress Note ---
Date of Service December 17, 2022 Anesthesia Post Procedure Vital Signs Vital Signs: Temp Pulse Pulse Resp BP Pulse Ox O2 Del Method 12/17/22 15:40 36.6 C 85 17 95/57 L 96 Room Air 12/17/22 15:50 36.6 C 86 21 107/60 96 Room Air 12/17/22 15:30 85 22 88/59 L 96 Room Air 12/17/22 15:10 82 14 102/61 99 Oxymask 12/17/22 15:20 89 15 96/78 L 96 Oxymask 12/17/22 15:00 36.6 C 84 16 111/58 L 99 Oxymask 12/17/22 14:51 36.6 C 91 H 17 110/61 98 Oxymask 12/17/22 10:08 36.7 C 93 H 20 166/86 H 93 Room Air O2 Flow Rate 12/17/22 15:40 12/17/22 15:50 12/17/22 15:30 12/17/22 15:10 3 12/17/22 15:20 1 12/17/22 15:00 5 12/17/22 14:51 7 12/17/22 10:08 Pain Intensity Left Knee: Pain Intensity: 0 Transfer of Care Handoff Completed per policy Notes Mental Status: alert / awake / arousable Patient Amnestic to Procedure: Yes Nausea / Vomiting: adequately controlled Pain: adequately controlled Airway Patency, RR, SpO2: stable & adequate BP & HR: stable & adequate Hydration State: stable & adequate Neuraxial Anesthesia: was administered and sensory block is resolving Anesthetic Complications: no major complications apparent
[2022-12-17] MEDS ORDERED: NALOXONE HCL 0.4 MG/1 ML VIAL/CARP IV PRN (16:27)
[2022-12-17] MEDS ORDERED: METOCLOPRAMIDE HCL INJ 5 MG/ML 2 ML VIAL IV PRN (16:27)
[2022-12-17] MEDS ORDERED: HYDROmorphone INJ 0.5 MG/0.5 ML SYR IV PRN (16:27)
[2022-12-17] MEDS ORDERED: SODIUM CHLORIDE 0.9% 1000ML 1,000 ML IV SCH (16:27)
[2022-12-17] MEDS ORDERED: bisacodyL 10 MG SUPP PR PRN (16:27)
[2022-12-17] MEDS ORDERED: ONDANSETRON INJ 2 MG/ML 2 ML VIAL IV PRN (16:27)
[2022-12-17] MEDS ORDERED: MAGNESIUM HYDROXIDE SUSP 30 ML UDC PO PRN (16:27)
[2022-12-17] MEDS: KETOROLAC TROMETHAMINE 15 MG/ML VIAL IV SCH ×2 (17:12→22:15)
[2022-12-17] MEDS: oxyCODONE HCL IR 5 MG TAB (IMMEDIATE RELEASE) PO PRN (19:24)
[2022-12-17] MEDS: ceFAZolin 2000MG 2,000 MG/15 ML SYR IV SCH (20:28)
[2022-12-17] MEDS: ASPIRIN 81 MG ECTAB PO SCH (20:30)
[2022-12-17] MEDS: DOCUSATE SODIUM 100 MG CAP PO SCH (20:30)
[2022-12-17] MEDS: lisinopril 20 MG TAB PO SCH (20:31)
[2022-12-17] MEDS ORDERED: SENNA 8.6 MG TAB PO SCH (21:00)
[2022-12-17] MEDS: ACETAMINOPHEN 500 MG TAB PO SCH (22:15)
[2022-12-18] MEDS: oxyCODONE HCL IR 5 MG TAB (IMMEDIATE RELEASE) PO PRN ×2 (01:05→12:02)
[2022-12-18] MEDS: ceFAZolin 2000MG 2,000 MG/15 ML SYR IV SCH (05:29)
[2022-12-18] MEDS: KETOROLAC TROMETHAMINE 15 MG/ML VIAL IV SCH ×3 (05:29→12:00)
[2022-12-18] MEDS: ACETAMINOPHEN 500 MG TAB PO SCH (05:29)
[2022-12-18] MEDS ORDERED: dexAMETHasone 4 MG TAB PO SCH (08:00)
--- NOTE | 2022-12-18 08:03 | Discharge Summary ---
Date of Service December 18, 2022 Admission HPI (Per Admitting) Miracle is a pleasant 77-year-old female who I did a right knee replacement on in September 2022. She is done very well with that. Unfortunately she has been dealing with left knee pain. X-rays and clinical examination been diagnostic for advanced osteoarthritis of the left knee. After failing conservative treatment, she has elected to proceed with a left total knee arthroplasty.. Admission Exam (Per Admitting) On physical examination of the left knee, she has tenderness palpation of the distal femoral condyles and mostly over the lateral joint line. There is no gross deformity. There is no effusion.. Principal Diagnosis Same as "Discharge Diagnosis" noted below under Discharge Instructions. Discharge Exam On physical examination of the left knee, the dressing is clean and dry. Her leg is out in full extension. She has active dorsiflexion and plantarflexion of her left ankle.. Discharge Data Procedures Performed Operation Date: 12/17/22 12:00 Actual Procedures p Left Total Knee Arthroplasty(Left) - Santhosh Tate DO Ordered Studies 12/17/22 05:00 US - OR guided needle placemen Routine Hospital Course (1) Status post left knee replacement: On December 17, 2022 Miracle arrived at [facility] and underwent a left knee replacement without complication. She had a spinal anesthetic. Postoperatively she was started on aspirin for DVT prophylaxis and transferred to the general orthopedic floors. Her hospital course was uneventful. On postop day 1, her vital signs were stable and her pain was well controlled. She was able to participate well with physical therapy doing ambulation and range of motion exercises. She was then discharged home. She will follow-up with orthopedics in 2 weeks. PG Care Time/CCT Total # of Minutes Spent Total Time Spent with Patient: Total time spent is greater than 50% in coordination of care (as documented) at patient's floor/unit and/or counseling patient: Discharge Plan Discharge Items Patient Disposition: Home - Home Health Services Reason For Visit: Left Knee Degenerative Joint Disease Discharge Diagnosis: Left knee replacement Activity: Per Instructions section Non-emergency contact: Surgeon Call non-emergency contact if: your wound has increased redness and your wound has increased drainage Follow-up/Referrals: Sunny Singletary MD [Primary Care Provider] - Diet: Regular Addtl Attending Provider Instructions: Activity and Therapy Recommendations: * If you are using [facility] then therapy will be provided at your home until they feel you have accomplished all of your goals. * If you are using [facility] then Physical Therapy will be provided until they feel you are ready to start Outpatient Physical Therapy. * If you are not using home therapy then Outpatient Physical Therapy should start about 3-5 days from your day of surgery. Therapy will last about 6-10 weeks * It is important not to put a pillow under your knee when you are relaxing or sleeping. It is just as important to make sure you are getting your knee perfectly straight as it is to regain your knee bend. * You were shown a series of exercises in the hospital. Do these exercises three times each day including the exercises you were shown in physical therapy. * Get up and walk several times each day. For the first four weeks, try not to stand or walk for more than one hour at a time. If you do stand or walk for more than one hour, you will not hurt anything, but your leg will likely swell. * As you feel comfortable, you may change from the walker or crutches to a cane and then to independent walking. Medications: * Narcotic You will likely be sent home from the hospital with a prescription for the narcotic pain medication that worked best throughout your stay. * Aspirin Most patients will be required to take Aspirin 81mg twice a day for 6 weeks after surgery. This is obtained [id number] and a prescription is not necessary. * Other medications may be prescribed for specific circumstances. If you have any questions, please call the office at . * Resume previous home medications unless otherwise instructed TEDs/Elastic Stockings: The white elastic stockings help limit swelling and prevent blood clots from forming in your legs.~ The more you wear them, the more they work. Wear them for six weeks. Dressing Care: The dressing can be changed after physical therapy on postop day #1. Daily dry dressing changes for a few days, especially if the incision is still draining some. If the incision is not draining then you may leave the isaias open to air. If there is a little bit of drainage or if the isaias are getting stuck on your clothing then cover the incision with a dry dressing. The isaias will be removed at your 2 week follow-up appointment. Showering: You may shower 5 days from the day of surgery as long as the incision is no longer draining. You may shower with the isaisa exposed. Let soapy water run over the isaias and pat them dry. Do not scrub or soak the incision. Things To Watch For: * Drainage from the incision site that occurs more than one week after your surgery. * Increased redness at the incision site. * Fever above 102 degrees Fahrenheit. * Unusual chest pain or shortness of breath. * Call [facility] at with any of the above problems Follow-Up Visit: Follow-up with Dr. Tate's PA (Santhosh Terry) 2-3 weeks after your day of surgery. He will remove your isaias and answer any questions. If you have any additional questions or concerns, Dr Tate is usually in the office at the same time and will be available An appointment was probably scheduled when you signed-up for surgery in the office. If you have any questions call Office Instructions: More detailed instructions as well as Frequently Asked Questions were provided in a folder by our office when you signed-up for surgery. Please review these instructions when you get home. If you have any further questions or concerns, please feel free to call the office at [phone] Pending Studies at Discharge: No Stand-Alone Forms: My [facility] Medications and DC Order Prescriptions: New aspirin 81 mg Tablet,Delayed Release (Dr/Ec) 81 mg PO BID 42 Days Qty: 84 0RF celecoxib [Celebrex] 200 mg capsule 200 mg PO BID Qty: 60 3RF Continued atorvastatin 20 mg Tablet 20 mg PO QAM potassium chloride [Klor-Con 10] 10 mEq Tablet Extended Release 10 meq PO QAM amlodipine 5 mg Tablet 5 mg PO QAM lisinopril 10 mg Tablet 20 mg PO BID triamterene-hydrochlorothiazid 37.5-25 mg Tablet 1 tab PO QAM minocycline 50 mg Tablet 50 mg PO QAM Vitalizer Gold 1 dose PO QAM Claritin tablet 1 tab PO oxycodone-acetaminophen [Percocet] 5-325 mg tablet 1 tab PO Q6H PRN (Reason: pain) Qty: 30 0RF Discontinued oxycodone-acetaminophen 5-325 mg tablet 1 tab PO Q6H PRN (Reason: pain) Qty: 30 0RF Admission Data Admit Date/Time: 12/17/22 14:50 Attending Provider: Santhosh Tate Admit Provider: Santhosh Tate Primary Care Provider: Sunny Singletary
--- NOTE | 2022-12-18 08:03 | Orthopedic Progress Note ---
Date of Service December 18, 2022 Assessment & Plan (1) Status post left knee replacement: Overall she is doing very well. She is not having much pain in the left knee. She will be seen by physical therapy today for ambulation and range of motion exercises. She is on aspirin for DVT prophylaxis. She can be discharged home later today. She will follow-up with orthopedics in 2 weeks. Awilda Rausch was seen and examined at bedside this morning. Overall she is doing very well. She is not having much pain in the left knee. She has been up and ambulating to the bathroom. She has no complaints.. Review of Systems All systems reviewed & are unremarkable except as noted in HPI & below. Physical Exam On physical examination of the left knee, the dressing is clean and dry. Her leg is out in full extension. She has active dorsiflexion and plantarflexion of her left ankle.. Results & Data Results & Data Laboratory Results . Diagnostic Findings Postoperative x-rays of the left knee show the prosthesis to be in anatomic alignment without any evidence of fracture, dislocation, or loosening. PG Care Time/CCT Total # of Minutes Spent Total Time Spent with Patient: Total time spent is greater than 50% in coordination of care (as documented) at patient's floor/unit and/or counseling patient: Coding Level of Care Code 17028 Post Operative Follow-Up Diagnoses Status post left knee replacement Z96.652
[2022-12-18] MEDS: ASPIRIN 81 MG ECTAB PO SCH (08:45)
[2022-12-18] MEDS: lisinopril 20 MG TAB PO SCH (08:45)
[2022-12-18] MEDS: DOCUSATE SODIUM 100 MG CAP PO SCH (08:45)
[2022-12-18] MEDS ORDERED: POTASSIUM CHLORIDE 10 MEQ TABCR PO SCH (09:00)
[2022-12-18] MEDS ORDERED: MINOCYCLINE HCL 50 MG CAP PO SCH (09:00)
[2022-12-18] MEDS ORDERED: TRIAMTERENE/HCTZ 37.5/25MG TAB PO SCH (09:00)
[2022-12-18] MEDS ORDERED: amLODIPine BESYLATE 5 MG TAB PO SCH (09:00)
[2022-12-18] MEDS ORDERED: ATORVASTATIN 20 MG TAB PO SCH (09:00)
[2022-12-18] MEDS ORDERED: MULTIVITAMIN TAB PO SCH (09:00)
== END 2022-12-18 12:29 | disposition home health service (06) ==
LOC: ASU 09:21 → 3N 09:21